=== PATIENT | female | born 1985 | race Hispanic/Latino ===

== ENCOUNTER → 2018-12-11 | Outpatient (CLI) | payer OTHER ==
[~2018-12-11] VITALS: Ht 167.6 cm; Wt 103.5 kg
[2018-12-11 14:47] LABS: BASOPHILS % (AUTO) 0.7 % (0.0-5.0); EOSINOPHILS % (AUTO) 3.2 % (0.0-8.0); LYMPHOCYTES % (AUTO) 16.1 % (21.0-51.0); MEAN CORPUSCULAR HEMOGLOBIN 26.8 pg (27.0-33.0); MEAN CORPUSCULAR HGB CONC 32.8 g/dL (32.0-36.0); MEAN CORPUSCULAR VOLUME 81.5 fL (79-99); MONOCYTES % (AUTO) 5.7 % (3.0-13.0); NEUTROPHILS % (AUTO) 74.3 % (40.0-77.0); PLATELET COUNT (AUTO) 432 K/uL (130-400); RED BLOOD CELL COUNT(AUTO) 5.03 MIL/uL (4.00-5.50); WHITE BLOOD COUNT (AUTO) 14.9 K/uL (4.8-10.8)
[2018-12-11 14:53] VITALS: BP 134/77
[2018-12-11 15:03] LABS: INR 0.89 (0.85-1.15); PROTHROMBIN TIME 9.4 SEC (9.6-11.6)
== END ==
LOC: DAH 10:00 → EDSTATUS 13:30
PROVIDERS: ATTEND Otolaryngology Plastic Surgery within the Head & Neck
DX: Z01.818 Encounter for other preprocedural examination (principal); J34.2 Deviated nasal septum
CPT/HCPCS: 36415; 84702; 85025; 85610; 85730

== ENCOUNTER 2019-05-15 17:48 | Emergency (ER) | payer OTHER ==
[2019-05-15 19:03] LABS: BILIRUBIN,URINE Negative (NEGATIVE); COLOR,URINE Yellow (YELLOW); GLUCOSE, URINE (UA) Negative (NEGATIVE); KETONES,URINE Trace mg/dL (NEGATIVE); LEUKOCYTE ESTERASE ,URINE Small (NEGATIVE); NITRATE,URINE Negative (NEGATIVE); OCCULT BLOOD,URINE Small (NEGATIVE); PH,URINE 5.5 (5.0-8.0); PROTEIN,URINE Negative (NEGATIVE)
[2019-05-15 19:08] LABS: APPEARANCE,URINE SLIGHTLY CLOUDY (CLEAR)
[2019-05-15 19:14] LABS: HCG,QUAL RESULT NEGATIVE (NEGATIVE)
[2019-05-15 19:32] LABS: BACTERIA,URINE Few /HPF (None Seen); RBC,URINE 0-1 /HPF (0-1)
== END 2019-05-15 19:47 | disposition home or self-care (01) ==
LOC: EDH 17:48
DX: B34.9 Viral infection, unspecified (principal)
CPT/HCPCS: 81001; 81025

== ENCOUNTER 2019-07-12 10:55 | Emergency (ER) | payer OTHER ==
[2019-07-12 11:35] LABS: APPEARANCE,URINE Cloudy (CLEAR); BILIRUBIN,URINE Negative (NEGATIVE); COLOR,URINE Yellow (YELLOW); GLUCOSE, URINE (UA) Negative (NEGATIVE); KETONES,URINE Negative (NEGATIVE); LEUKOCYTE ESTERASE ,URINE Moderate (NEGATIVE); NITRATE,URINE Negative (NEGATIVE); OCCULT BLOOD,URINE Negative (NEGATIVE); PH,URINE 5.5 (5.0-8.0); PROTEIN,URINE Negative (NEGATIVE)
[2019-07-12 11:39] LABS: HCG,QUAL RESULT NEGATIVE (NEGATIVE)
[2019-07-12 11:42] LABS: BACTERIA,URINE Few /HPF (None Seen); RBC,URINE 0-1 /HPF (0-1)
[2019-07-12 11:43] LABS: MUCUS,URINE Moderate LPF (None Seen); SQUAMOUS EPITHELIAL CELL,UR Few /HPF (0-2)
== END 2019-07-12 12:25 | disposition home or self-care (01) ==
LOC: EDH 10:55
DX: N94.89 Other specified conditions associated with female genital organs and menstrual cycle (principal); R10.30 Lower abdominal pain, unspecified
CPT/HCPCS: 81001; 81025

== ENCOUNTER 2019-09-11 05:53 | Day surgery (SDC) | payer OTHER ==
[2019-09-07 15:22] VITALS: BP 140/74
[~2019-09-11] VITALS: Ht 170.2 cm; Wt 104.3 kg
[2019-09-11] VITALS (16 sets, daily range): BP systolic 120–140; BP diastolic 73–92
[~2019-09-11 05:53] MED LIST: BIRTH CONTROL MED PO
[2019-09-11] MEDS ORDERED: LACTATED RINGERS 1000ML 1,000 ML IV ONE (06:38)
[2019-09-11] MEDS ORDERED: OXYMETAZOLINE HCL SPRAY 15 ML BOTTLE ONE (06:55)
[2019-09-11] MEDS ORDERED: LIDOCAINE 1%-EPI 1:100,000 20 ML VIAL IJ ONE (07:03)
[2019-09-11] MEDS ORDERED: BACITRACIN 28.4 GM OINT TP ONE (07:03)
[2019-09-11] MEDS ORDERED: NORG1TAB13 PO (07:05)
[2019-09-11] MEDS ORDERED: ROCURONIUM 10MG/1ML SYR 10 MG/ML ML ONE (07:12)
[2019-09-11] MEDS ORDERED: MIDAZOLAM HCL 1 MG/ML 2ML VIAL ONE ×2 (07:12→07:17)
[2019-09-11] MEDS ORDERED: FENTANYL CITRATE PF 50 MCG/1 ML 5ML AMP IV ONE (07:12)
[2019-09-11] MEDS ORDERED: LIDOCAINE PF 2% 5ML ABBOJECT ONE (07:12)
[2019-09-11] MEDS ORDERED: PROPOFOL 10 MG/ML 20ML VIAL IV ONE (07:12)
[2019-09-11] MEDS ORDERED: EPINEPHRINE 1 MG/ML 30ML VIAL IJ ONE (07:16)
[2019-09-11] MEDS ORDERED: DEXAMETHASONE SOD PHOSPHATE 10MG/ML 1ML VIAL ONE ×2 (07:17→07:53)
[2019-09-11] MEDS ORDERED: MEPERIDINE-PF 25 MG/ML SYG ONE ×3 (08:04→09:18)
== END 2019-09-11 10:30 | disposition home or self-care (01) ==
LOC: DAH 05:53
PROVIDERS: ATTEND Otolaryngology Plastic Surgery within the Head & Neck
DX: J34.2 Deviated nasal septum (principal); J32.4 Chronic pansinusitis; J30.9 Allergic rhinitis, unspecified; J34.3 Hypertrophy of nasal turbinates; J34.89 Other specified disorders of nose and nasal sinuses; J33.8 Other polyp of sinus; E66.01 Morbid (severe) obesity due to excess calories
CPT/HCPCS: 30140; 30520; 31255; 31267; 31276; 31288; 81025; 88305; A4215; A4221; A4222; A4223; A4649 ×3; A4663; A6260; J0171; J1100 ×2; J2001; J2175 ×3; J2250 ×2; J2704; J3010; J3490; J7120

== ENCOUNTER → 2020-02-04 | Outpatient (CLI) | payer OTHER ==
[~2020-02-04] MED LIST changes: -BIRTH CONTROL MED PO; +NORG1TAB13 PO
== END | disposition home or self-care (01) ==
LOC: RAH 14:53
PROVIDERS: ATTEND Otolaryngology Plastic Surgery within the Head & Neck
DX: J33.9 Nasal polyp, unspecified (principal); J01.40 Acute pansinusitis, unspecified; J34.2 Deviated nasal septum
CPT/HCPCS: 70486